=== PATIENT | female | born 1935 | race Caucasian/White ===

== ENCOUNTER → 2016-05-23 | Outpatient (CLI) | payer MEDICARE ==
[~2016-05-23] MED LIST: ASPI81 PO; DILT180C56 PO; DUONI NEB; HYDR-2768 PO; LORA0.5T PO; LOVA10TA PO; OMEG5CAP PO; OMEP20CA5 PO; ROBIDMS PO; TOPR50TA PO; Z.0.OXYGENDME NC
[2016-05-23 13:45] LABS: HEMATOCRIT 38.7 % (35.0-46.0); MEAN CELL VOLUME 89.1 FL (80.0-100.0); MEAN CORPUSCULAR HEMOGLOBIN 29.6 PG (27.0-34.0); MEAN CORPUSCULAR HGB CONC 33.3 % (32.0-36.0); PLATELET COUNT 190 TH/MM3 (150-450); RED BLOOD COUNT 4.35 MIL/MM3 (4.00-5.30); RED CELL DISTRIBUTION WIDTH 13.5 % (11.6-17.2); REVIEW FLAG FINAL; WHITE BLOOD COUNT 6.8 TH/MM3 (4.0-11.0)
[2016-05-23 14:06] LABS: BICARBONATE 25.8 MEQ/L (21.0-32.0); POTASSIUM 4.1 MEQ/L (3.5-5.1)
== END ==
LOC: PLAB 09:20
PROVIDERS: ATTEND Internal Medicine Interventional Cardiology
DX: I11.9 Hypertensive heart disease without heart failure (principal); I48.2 Chronic atrial fibrillation; J44.9 Chronic obstructive pulmonary disease, unspecified; E66.3 Overweight
CPT/HCPCS: 36415; 80048; 85027

== ENCOUNTER → 2016-11-03 | Outpatient (CLI) | payer MEDICARE ==
[2016-11-03 13:09] LABS: AUTOMATED NEUTROPHIL # 3.6 TH/MM3 (1.8-7.7); BASOPHIL % 0.5 % (0.0-2.0); EOSINOPHIL # 0.1 TH/MM3 (0-0.4); EOSINOPHIL % 2.2 % (0.0-4.0); HEMATOCRIT 40.4 % (35.0-46.0); HEMO FLAGS DIFF FINAL; LYMPH % 29.6 % (9.0-44.0); LYMPHOCYTE # 1.8 TH/MM3 (1.0-4.8); MEAN CORPUSCULAR HEMOGLOBIN 29.8 PG (27.0-34.0); MEAN CORPUSCULAR HGB CONC 33.4 % (32.0-36.0); MONO % 9.7 % (0.0-8.0); PLATELET COUNT 191 TH/MM3 (150-450); RED BLOOD COUNT 4.54 MIL/MM3 (4.00-5.30); RED CELL DISTRIBUTION WIDTH 13.2 % (11.6-17.2); WHITE BLOOD COUNT 6.2 TH/MM3 (4.0-11.0)
[2016-11-03 14:11] LABS: ALT (GPT) 47 U/L (10-53); ANION GAP 7 MEQ/L (5-15); AST (GOT) 38 U/L (15-37); BICARBONATE 29.7 MEQ/L (21.0-32.0); BLOOD UREA NITROGEN 14 MG/DL (7-18); CHLORIDE 102 MEQ/L (98-107); GLOMERULAR FILTRATION RATE 56 ML/MIN (>89); GLUCOSE,FASTING 98 MG/DL (74-99); POTASSIUM 4.8 MEQ/L (3.5-5.1); SODIUM (NA) 139 MEQ/L (136-145)
[2016-11-03 14:13] LABS: ALKALINE PHOSPHATASE 76 U/L (45-117); HDL CHOLESTEROL 57.6 MG/DL (40.0-60.0); LDL CHOLESTEROL 82 MG/DL (0-99); TOTAL BILIRUBIN ADULT 0.6 MG/DL (0.2-1.0)
== END ==
LOC: PLAB 11:20
PROVIDERS: ATTEND Internal Medicine Interventional Cardiology
DX: I11.9 Hypertensive heart disease without heart failure (principal); I48.2 Chronic atrial fibrillation; J44.9 Chronic obstructive pulmonary disease, unspecified; E66.3 Overweight; E78.2 Mixed hyperlipidemia
CPT/HCPCS: 36415; 80053; 80061; 85025

== ENCOUNTER 2016-12-22 10:15 | Emergency (ER) | payer MEDICARE ==
[~2016-12-22] VITALS: Ht 162.6 cm; Wt 79.0 kg
[2016-12-22 10:30] VITALS: BP 140/88; PULSE 135; RESP 17; TEMP 98.5; O2SAT 96
[2016-12-22] MEDS ORDERED: APIX5TAB PO (10:49)
[2016-12-22] MEDS ORDERED: PRIL20TA2 (10:49)
[2016-12-22] MEDS ORDERED: AUGM875T3 PO (12:22)
--- NOTE | 2016-12-22 12:22 | PD ---
HPI Chief Complaint: Bite or Sting Time Seen by Provider: 11:11 Travel History International Travel<30 days: No Contact w/Intl Traveler<30days: No Traveled to known affect area: No History of Present Illness HPI 81-year-old female here for evaluation of right hand laceration and dog bite. Injury occurred prior to arrival. Patient's dog bit her right hand when she attempted to take chocolate candy away from the dog's mouth. She has a laceration to the right fourth digit dorsal aspect and 2 puncture wounds to the dorsal aspect of the hand. She has full range of motion and normal sensation. The bleeding is well-controlled. Symptom severity is moderate. No alleviating factors. PFSH Past Medical History Hx Anticoagulant Therapy: Yes (ELIQUIS) Arthritis: No Asthma: No Heart Rhythm Problems: No Cancer: Yes (PRE CANCEROUS LESION, RIGHT HEMICOLECTOMY ) Cardiovascular Problems: Yes (HIGH CHOLESTEROL, AFIB) High Cholesterol: Yes Chemotherapy: No Chest Pain: No Congestive Heart Failure: No COPD: No Cerebrovascular Accident: No Diabetes: No Diminished Hearing: No Endocrine: No GERD: Yes ([place] Syndrome) Genitourinary: No Hepatitis: No Hiatal Hernia: Yes Hypertension: Yes (hypertension) Immune Disorder: No Kidney Stones: No Musculoskeletal: Yes (ARTHRITIS) Neurologic: No Psychiatric: No Reproductive: No Respiratory: Yes Immunizations Current: No Migraines: No Renal Failure: No Seizures: No Sleep Apnea: No Thyroid Disease: No Ulcer: No Menopausal: Yes Past Surgical History AICD: No Appendectomy: Yes Arteriovenous Shunt: No Cardiac Surgery: No Cholecystectomy: Yes Ear Surgery: No Endocrine Surgery: No Eye Surgery: Yes (pablo cataracts removed) Genitourinary Surgery: No Gynecologic Surgery: Yes (HYSTERECTOMY) Hysterectomy: Yes Insulin Pump: No Joint Replacement: No Oral Surgery: No Pacemaker: No Thoracic Surgery: No Tonsillectomy: Yes Other Surgery: Yes (RIGHT HEMICOLECTOMY) Social History Alcohol Use: No Tobacco Use: No Substance Use: No Allergies-Medications (Allergen,Severity, Reaction): Coded Allergies: celecoxib (Unverified Allergy, Severe, 12/22/16) fluoxetine (Unverified Allergy, Severe, 12/22/16) Reported Meds & Prescriptions Reported Meds & Active Scripts Active Augmentin (Amoxicillin-Clavulanate) 875-125 Mg Tab 1 Tab PO BID Reported Prilosec (Omeprazole Magnesium) 20 Mg Tab Eliquis (Apixaban) 5 Mg Tab 5 Mg PO BID Review of Systems Except as stated in HPI: all other systems reviewed are Neg Physical Exam Narrative GENERAL: Well-nourished, well-developed patient. SKIN: Focused skin assessment warm/dry. HEAD: Normocephalic. EYES: No scleral icterus. No injection or drainage. NECK: Supple, trachea midline. No JVD or lymphadenopathy. CARDIOVASCULAR: Regular rate and rhythm without murmurs, gallops, or rubs. RESPIRATORY: Breath sounds equal bilaterally. No accessory muscle use. GASTROINTESTINAL: Abdomen soft, non-tender, nondistended. MUSCULOSKELETAL: No cyanosis, or edema. Right hand: 3 cm gaping flap laceration dorsal aspect of the fourth digit over the IP joint. No tendon injury. Patient is able to fully flex and extend against resistance. Normal sensation. Brisk cap refill. 2 puncture wounds to the dorsal aspect of the hand; Data Data Last Documented VS Vital Signs Date Time Temp Pulse Resp B/P (MAP) Pulse Ox O2 Delivery O2 Flow Rate FiO2 12/22/16 10:30 98.5 135 17 140/88 (105) 96 MDM Medical Decision Making Medical Screen Exam Complete: Yes Emergency Medical Condition: Yes Differential Diagnosis Hand laceration, dog bite, puncture wound Narrative Course 81-year-old female here for evaluation of dog bite to the right hand. Patient has a gaping 3 cm laceration over the fourth digit dorsal aspect of the IP joint. No tendon injury visualized. Patient has full range of motion and normal sensation of the digit. Due to the gaping nature of the wound it was loosely tacked with sutures after being extensively irrigated. The extremity is neurovascularly intact. Patient we put on antibiotics. Finger splinted. Follow-up in 2 days for recheck. Strict return precautions discussed. Procedures Procedure Narrative LACERATION LOCATION: Right hand fourth digit LENGTH: 3 cm flap laceration NUMBER OF STITCHES/SIMBA: 5 REPAIR: The area of the laceration was prepped with Betadine and sterilely draped. Digital block with 1% lidocaine. The wound was copiously irrigated and explored without evidence of foreign body, tendon injury or neurovascular injury. The wound was closed using 4-0 proline. This was a single layer repair. A sterile dressing was applied. The patient was advised to keep the dressing clean and dry. Patient tolerated the procedure well. Diagnosis Primary Impression: Hand laceration Qualified Codes: S61.411A - Laceration without foreign body of right hand, initial encounter Referrals: Dallin Vázquez MD Additional Instructions: Do not submerge the wound in water. cleanse the area daily with soap and water and apply clean dressing. Follow-up with her doctor in 2 days for recheck Return to emergency department if he developed new or worsening symptoms such as increasing pain, increasing redness, pussy drainage Take the antibiotics as prescribed. Take [id number] Motrin or Tylenol as needed for pain Sutures need to be removed in 7-10 days Scripts Amoxicillin-Clavulanate (Augmentin) 875-125 Mg Tab 1 TAB PO BID for Infection, #20 TAB 0 Refills Prov: Celeste Herrera 12/22/16 Disposition: 01 DISCHARGE HOME Condition: Stable Celeste Herrera Dec 22, 2016 12:22
== END 2016-12-22 12:32 | disposition home or self-care (01) ==
LOC: PHED 10:15 → PHEFT 12:32
DX: S61.411A Laceration without foreign body of right hand, initial encounter (principal); S61.451A Open bite of right hand, initial encounter; W54.0XXA Bitten by dog, initial encounter
CPT/HCPCS: 12002

== ENCOUNTER 2017-02-08 21:32 | Inpatient (IN) | payer MEDICARE ==
[2017-02-08] VITALS (8 sets, daily range): BP systolic 131–169; BP diastolic 77–95; PULSE 98–158; RESP 20–22; TEMP 98.8–99.5; O2SAT 94–98
[~2017-02-08 21:32] MED LIST changes: +APIX5TAB PO; -ASPI81 PO; +AUGM875T3 PO; -DILT180C56 PO; -DUONI NEB; -HYDR-2768 PO; -LORA0.5T PO; -LOVA10TA PO; -OMEG5CAP PO; -OMEP20CA5 PO; +PRIL20TA2; -ROBIDMS PO; -TOPR50TA PO; -Z.0.OXYGENDME NC
[2017-02-08] MEDS ORDERED: DILTIAZEM HCL 25 MG/5 ML VIAL IV ONE (22:00)
[2017-02-08] MEDS ORDERED: ONDANSETRON HCL 4 MG/2 ML VIAL IV PUSH ONE (22:00)
[2017-02-08] MEDS ORDERED: SODIUM CHLORID 0.9% 500 ML INJ 500 ML IV ONE (22:00)
[2017-02-08 22:08] LABS: AUTOMATED NEUTROPHIL # 2.2 TH/MM3 (1.8-7.7); BASOPHIL # 0.1 TH/MM3 (0-0.2); BASOPHIL % 1.5 % (0.0-2.0); EOSINOPHIL % 0.2 % (0.0-4.0); HEMO FLAGS DIFF FINAL; LYMPH % 28.9 % (9.0-44.0); LYMPHOCYTE # 1.1 TH/MM3 (1.0-4.8); MEAN CELL VOLUME 87.1 FL (80.0-100.0); MEAN CORPUSCULAR HEMOGLOBIN 28.9 PG (27.0-34.0); MEAN CORPUSCULAR HGB CONC 33.1 % (32.0-36.0); MONO % 11.4 % (0.0-8.0); PLATELET COUNT 136 TH/MM3 (150-450); RED BLOOD COUNT 4.82 MIL/MM3 (4.00-5.30); RED CELL DISTRIBUTION WIDTH 12.3 % (11.6-17.2); WHITE BLOOD COUNT 3.8 TH/MM3 (4.0-11.0)
[2017-02-08] MEDS ORDERED: METO1TAB9 PO (22:16)
[2017-02-08] MEDS ORDERED: CART120C PO (22:16)
[2017-02-08] MEDS ORDERED: PRIL20TA2 (22:16)
[2017-02-08 22:19] LABS: CHLORIDE 98 MEQ/L (98-107); POTASSIUM 3.4 MEQ/L (3.5-5.1); SODIUM (NA) 134 MEQ/L (136-145)
[2017-02-08 22:23] LABS: ANION GAP 15 MEQ/L (5-15); BICARBONATE 21.2 MEQ/L (21.0-32.0); BLOOD UREA NITROGEN 9 MG/DL (7-18)
[2017-02-08 22:26] LABS: ALT (GPT) 44 U/L (10-53); AST (GOT) 44 U/L (15-37); GLOMERULAR FILTRATION RATE 53 ML/MIN (>89)
[2017-02-08 22:27] LABS: TOTAL BILIRUBIN ADULT 0.6 MG/DL (0.2-1.0)
[2017-02-08 22:28] LABS: ALKALINE PHOSPHATASE 99 U/L (45-117); CREATINE KINASE 111 U/L (26-192)
[2017-02-08 22:41] LABS: CKMB 1.2 NG/ML (0.5-3.6)
[2017-02-08] MEDS ORDERED: TRAZ50TA12 PO (23:00)
[2017-02-08] MEDS ORDERED: LORazepam 2 MG/ML VIAL IV ONE (23:00)
[2017-02-08] MEDS ORDERED: LORA-392 PO (23:00)
[2017-02-08] MEDS ORDERED: HYDR25TA5 PO (23:09)
--- NOTE | 2017-02-08 23:12 | EKG ---
Date Performed: 02/08/2017 Time Performed: 21:54:08 PTAGE: 81 years EKG: PROBABLE AFIB WITH RVR NONSPECIFIC ST & T-WAVE ABNORMALITY ABNORMAL RHYTHM ECG INTERPRETATI ON BASED ON A DEFAULT AGE OF 40 YEARS PREVIOUS TRACING : 07/30/2013 23.57 Compared to the previous tracing, previously felt to be sinus tachycardia DOCTOR: Sae Borja Interpretating Date/Time 02/08/2017 23:11:56
[2017-02-08] MEDS: DILTIAZEM INJ 125 MG in SODIUM CHLORIDE 0.9% INJ 100 ML IV PRN (23:31)
--- NOTE | 2017-02-08 23:33 | PD ---
HPI Chief Complaint: Cold / Flu Symptoms Time Seen by Provider: 21:54 Travel History International Travel<30 days: No Contact w/Intl Traveler<30days: No Traveled to known affect area: No History of Present Illness HPI Patient is a 81-year-old female who is coming in complaining of feeling lightheaded and dizzy headache E congestion feverish and at triage she is known that she is in rapid A. fib. She is history of A. fib she is on Ellick was as well as metoprolol and other meds. She is in rapid A. fib she has no chest pain she has congestion she feels feverish feels slightly dizzy and light is hurting her eyes. PFSH Past Medical History Hx Anticoagulant Therapy: Yes (ELIQUIS) Arthritis: No Asthma: No Heart Rhythm Problems: No Cancer: Yes (PRE CANCEROUS LESION, RIGHT HEMICOLECTOMY ) Cardiovascular Problems: Yes High Cholesterol: Yes Chemotherapy: No Chest Pain: No Congestive Heart Failure: No COPD: No Cerebrovascular Accident: No Diabetes: No Diminished Hearing: No Endocrine: No GERD: Yes Genitourinary: No Hepatitis: No Hiatal Hernia: Yes Hypertension: Yes Immune Disorder: No Kidney Stones: No Musculoskeletal: Yes Neurologic: No Psychiatric: No Reproductive: No Respiratory: Yes Immunizations Current: No Migraines: No Renal Failure: No Seizures: No Sleep Apnea: No Thyroid Disease: No Ulcer: No Menopausal: Yes Past Surgical History AICD: No Appendectomy: Yes Arteriovenous Shunt: No Cardiac Surgery: No Cholecystectomy: Yes Ear Surgery: No Endocrine Surgery: No Eye Surgery: Yes (BILATERAL CATARACTS) Genitourinary Surgery: No Gynecologic Surgery: Yes Hysterectomy: Yes Insulin Pump: No Joint Replacement: No Oral Surgery: No Pacemaker: No Thoracic Surgery: No Tonsillectomy: Yes Other Surgery: Yes (RIGHT HEMICOLECTOMY) Social History Alcohol Use: No Tobacco Use: No (QUIT 1980) Substance Use: No Allergies-Medications (Allergen,Severity, Reaction): Coded Allergies: celecoxib (Unverified Allergy, Severe, 02/08/17) fluoxetine (Unverified Allergy, Severe, 02/08/17) Reported Meds & Prescriptions Reported Meds & Active Scripts Active Reported Trazodone (Trazodone HCl) 50 Mg Tab 50 Mg PO HS Ativan (Lorazepam) 0.5 Mg Tab 0.5 Mg PO Q6H PRN Prilosec (Omeprazole Magnesium) 20 Mg Tab Eliquis (Apixaban) 5 Mg Tab 5 Mg PO BID Physical Exam Narrative GENERAL: Congested nasal red nose hoarse voice SKIN: Warm and dry. HEAD: Atraumatic. Normocephalic. EYES: Pupils equal and round. No scleral icterus. No injection or drainage. ENT: No nasal bleeding or discharge. Mucous membranes pink and moist. Tonsils swollen bilaterally with mild exudate NECK: Trachea midline. No JVD. CARDIOVASCULAR: Regular rate and rhythm. RESPIRATORY: No accessory muscle use. Clear to auscultation. Breath sounds equal bilaterally. GASTROINTESTINAL: Abdomen soft, non-tender, nondistended. Hepatic and splenic margins not palpable. MUSCULOSKELETAL: Extremities without clubbing, cyanosis, or edema. No obvious deformities. NEUROLOGICAL: Awake and alert. No obvious cranial nerve deficits. Motor grossly within normal limits. Five out of 5 muscle strength in the arms and legs. Normal speech. PSYCHIATRIC: Appropriate mood and affect; insight and judgment normal. Data Data Last Documented VS Vital Signs Date Time Temp Pulse Resp B/P (MAP) Pulse Ox O2 Delivery O2 Flow Rate FiO2 02/08/17 23:40 99.5 129 20 142/79 (100) 95 Nasal Cannula 3.00 Orders Orders Diltiazem Inj (Cardizem Inj) (02/08/17 22:00) Ondansetron Inj (Zofran Inj) (02/08/17 22:00) Sodium Chlorid 0.9% 500 Ml Inj (Ns 500 M (02/08/17 22:00) Complete Blood Count With Diff (02/08/17 21:57) Comprehensive Metabolic Panel (02/08/17 21:57) Ckmb (Isoenzyme) Profile (02/08/17 21:57) Troponin I (02/08/17 21:57) Lipase (02/08/17 21:57) CKMB (02/08/17 22:00) CKMB% (02/08/17 22:00) Electrocardiogram (02/08/17 21:54) Review Analyst / Telemetry DAYRON.Q8H (02/08/17 22:32) Cardiac Rhythm DAYRON.Q8H (02/08/17 22:32) Notify Dr: Other (02/08/17 22:32) Diltiazem Inj (Cardizem Inj) (02/08/17 22:45) Influenzae A/B Antigen (02/08/17 22:56) Group A Rapid Strep Screen (02/08/17 22:56) Lorazepam Inj (Ativan Inj) (02/08/17 23:00) Admit To Inpatient (02/08/17 ) Vital Signs (Adult) Q4H (02/08/17 23:39) Activity Oob With Assistance (02/08/17 23:39) Review Analyst / Telemetry .CONTINUOUS (02/08/17 23:39) Intake + Output DAYRON.QSHIFT (02/08/17 23:39) Diet Heart Healthy (02/09/17 Breakfast) Sodium Chlor 0.9% 1000 Ml Inj (Ns 1000 M (02/08/17 23:39) Sodium Chloride 0.9% Flush (Ns Flush) (02/08/17 23:45) Sodium Chloride 0.9% Flush (Ns Flush) (02/09/17 09:00) Ondansetron Inj (Zofran Inj) (02/08/17 23:45) Comprehensive Metabolic Panel (02/09/17 06:00) Complete Blood Count With Diff (02/09/17 06:00) Pharmacologic Contraindication (02/08/17 23:39) Acetaminophen (Tylenol) (02/08/17 23:45) Acetamin-Hydrocod 325-5 Mg ([place] 5-325 (02/08/17 23:45) Acetamin-Hydrocod 325-10 Mg ([place] 10-32 (02/08/17 23:45) Docusate Sodium-Senna (Alysia-Colace) (02/09/17 09:00) Magnesium Hydroxide Liq (Milk Of Magnesi (02/08/17 23:45) Sennosides (Senokot) (02/08/17 23:45) Bisacodyl Supp (Dulcolax Supp) (02/08/17 23:45) Lactulose Liq (Lactulose Liq) (02/08/17 23:45) Inpatient Certification (02/08/17 ) Apixaban (Eliquis) (02/09/17 09:00) Lorazepam (Ativan) (02/08/17 23:45) Metoprolol Succinate Er (Toprol Xl) (02/09/17 09:00) Trazodone (Desyrel) (02/09/17 21:00) Admit Order (Ed Use Only) (02/08/17 23:43) Labs Laboratory Tests Test 02/08/17 22:00 White Blood Count 3.8 TH/MM3 Red Blood Count 4.82 MIL/MM3 Hemoglobin 13.9 GM/DL Hematocrit 42.0 % Mean Corpuscular Volume 87.1 FL Mean Corpuscular Hemoglobin 28.9 PG Mean Corpuscular Hemoglobin Concent 33.1 % Red Cell Distribution Width 12.3 % Platelet Count 136 TH/MM3 Mean Platelet Volume 8.7 FL Neutrophils (%) (Auto) 58.0 % Lymphocytes (%) (Auto) 28.9 % Monocytes (%) (Auto) 11.4 % Eosinophils (%) (Auto) 0.2 % Basophils (%) (Auto) 1.5 % Neutrophils # (Auto) 2.2 TH/MM3 Lymphocytes # (Auto) 1.1 TH/MM3 Monocytes # (Auto) 0.4 TH/MM3 Eosinophils # (Auto) 0.0 TH/MM3 Basophils # (Auto) 0.1 TH/MM3 CBC Comment DIFF FINAL Differential Comment Blood Urea Nitrogen 9 MG/DL Creatinine 1.00 MG/DL Random Glucose 140 MG/DL Total Protein 8.0 GM/DL Albumin 4.1 GM/DL Calcium Level 9.1 MG/DL Alkaline Phosphatase 99 U/L Aspartate Amino Transf (AST/SGOT) 44 U/L Alanine Aminotransferase (ALT/SGPT) 44 U/L Total Bilirubin 0.6 MG/DL Sodium Level 134 MEQ/L Potassium Level 3.4 MEQ/L Chloride Level 98 MEQ/L Carbon Dioxide Level 21.2 MEQ/L Anion Gap 15 MEQ/L Estimat Glomerular Filtration Rate 53 ML/MIN Total Creatine Kinase 111 U/L Creatine Kinase MB 1.2 NG/ML Troponin I LESS THAN 0.02 NG/ML Lipase 98 U/L MDM Medical Decision Making Medical Screen Exam Complete: Yes Emergency Medical Condition: Yes Differential Diagnosis Viral illness versus bronchitis versus pneumonia versus influenza other Narrative Course Patient influenza is nasal aspirate is positive for influenza patient is given symptomatic treatment as well as Tamiflu 75 g by mouth's with a prescription for 5 days twice a day Robitussin-AC and Motrin and advised to avoid contact with kissing or shaking hands with others until the Tamiflu is finished Diagnosis Primary Impression: Influenza B Scripts Metoprolol Tartrate (Metoprolol Tartrate) 25 Mg Tab 25 MG PO BID for Heart, #60 TAB 3 Refills Hold if Blood pressure < 100 or Heart rate < 65 Prov: Candy Dobbins DO 02/10/17 Diltiazem CD 24 HR (Diltiazem CD 24 HR) 240 Mg Caper 240 MG PO DAILY for Heart, #30 CAP 3 Refills Hold if heart rate < 65 or Blood pressure < 100 Prov: Candy Dobbins DO 02/10/17 Oseltamivir (Tamiflu) 75 Mg Cap 75 MG PO DAILY for Infection, #3 CAP Prov: Candy Dobbins DO 02/10/17 Disposition: 01 DISCHARGE HOME Condition: Good Marco Randolph MD Feb 08, 2017 23:33
[2017-02-08] MEDS ORDERED: ACETAMINOPHEN/HYDROcodone 325 MG/5 MG TAB PO PRN (23:45)
[2017-02-08] MEDS ORDERED: ONDANSETRON HCL 4 MG/2 ML VIAL IVP PRN (23:45)
[2017-02-08] MEDS ORDERED: ACETAMINOPHEN/HYDROcodone 325 MG/10 MG TAB PO PRN (23:45)
[2017-02-08] MEDS ORDERED: BISACODYL 10 MG SUPP RECTAL PRN (23:45)
[2017-02-08] MEDS ORDERED: SODIUM CHLORIDE 0.9% FLUSH 10 ML FLUSH IV FLUSH PRN (23:45)
[2017-02-08] MEDS ORDERED: LACTULOSE SYRUP 20 GM/30 ML CUP PO PRN (23:45)
[2017-02-08] MEDS ORDERED: LORazepam 0.5 MG TAB PO PRN (23:45)
[2017-02-08] MEDS ORDERED: MAGNESIUM HYDROXIDE SUSP 30 ML CUP PO PRN (23:45)
[2017-02-08] MEDS ORDERED: SENNOSIDES 8.6 MG TAB PO PRN (23:45)
[2017-02-08] MEDS ORDERED: ACETAMINOPHEN 325 MG TAB PO PRN (23:45)
[2017-02-09] VITALS (61 sets, daily range): BP systolic 75–146; BP diastolic 48–92; PULSE 70–126; RESP 11–37; TEMP 97.9–99; O2SAT 92–99
[2017-02-09 05:15] LABS: HEMATOCRIT 39.3 % (35.0-46.0); MEAN CELL VOLUME 87.7 FL (80.0-100.0); MEAN CORPUSCULAR HEMOGLOBIN 29.6 PG (27.0-34.0); MEAN CORPUSCULAR HGB CONC 33.7 % (32.0-36.0); PLATELET COUNT 129 TH/MM3 (150-450); RED BLOOD COUNT 4.48 MIL/MM3 (4.00-5.30); RED CELL DISTRIBUTION WIDTH 12.2 % (11.6-17.2); WHITE BLOOD COUNT 3.6 TH/MM3 (4.0-11.0)
[2017-02-09 05:17] LABS: HEMO FLAGS AUTO DIFF
[2017-02-09 05:28] LABS: CHLORIDE 101 MEQ/L (98-107); POTASSIUM 3.5 MEQ/L (3.5-5.1); SODIUM (NA) 135 MEQ/L (136-145)
[2017-02-09 05:33] LABS: BANDS 5 % (0-6); NEUTROPHIL # MANUAL DIFF 2.2 TH/MM3 (1.8-7.7); PLATELET ESTIMATE SMEAR LOW (NORMAL); POLYS (SEG NEUTROPHILS) 56 % (16-70); WBC DIFF SAMPLE 100
[2017-02-09 05:34] LABS: ANION GAP 10 MEQ/L (5-15); BICARBONATE 24.5 MEQ/L (21.0-32.0); BLOOD UREA NITROGEN 8 MG/DL (7-18); PLATELET MORPHOLOGY NORMAL (NORMAL); SCAN/DIFF FINAL DIFF MANUAL
[2017-02-09 05:43] LABS: ALKALINE PHOSPHATASE 87 U/L (45-117); ALT (GPT) 38 U/L (10-53); AST (GOT) 40 U/L (15-37); GLOMERULAR FILTRATION RATE 77 ML/MIN (>89); TOTAL BILIRUBIN ADULT 0.5 MG/DL (0.2-1.0)
[2017-02-09] MEDS: SODIUM CHLORIDE 0.9% FLUSH 10 ML FLUSH IV FLUSH SCH ×2 (09:00→20:34)
[2017-02-09] MEDS ORDERED: METOPROLOL SUCCINATE 50 MG EXTENDED RELEASE TAB PO SCH (09:00)
[2017-02-09] MEDS: DOCUSATE SODIUM 50 MG/SENNA 8.6 MG TAB PO SCH ×2 (09:10→20:33)
[2017-02-09] MEDS: APIXABAN 5 MG TABLET PO SCH ×2 (09:10→20:33)
--- NOTE | 2017-02-09 09:19 | HHI.HP ---
HPI Service [facility] Primary Care Physician Dallin Vázquez MD Admission Diagnosis AFIB RVR Diagnoses: Chief Complaint: Lightheadedness, dizziness, nausea, feeling cold. Travel History International Travel<30 Days: No Contact w/Intl Traveler <30 Da: No Traveled to Known Affected Are: No Sepsis Criteria SIRS Criteria (2 or more): Heart rate over 90, RR > 20 or PaCO2 < 32 History of Present Illness Ms. Felton is a 81-year-old female with a history of atrial fibrillation, hypertension who presents to the emergency department on 02/08/2017 due to nausea, lightheadedness, dizziness, headache and feeling cold symptoms. Patient started feeling cold on 02/05/2017. For the last 2 days prior to this admission she could not keep any fluid down due to nausea. She reports some cough as well. She denies any chest pain, abdominal pain. No changes in bowel or bladder habits. In the ED she was found to have atrial fibrillation with RVR. Review of Systems Except as stated in HPI: all other systems reviewed are Neg Past Family Social History Past Medical History Atrial fibrillation, hypertension, hiatal hernia, GERD Past Surgical History Bilateral cataract surgery, right hemicolectomy, cholecystectomy, hysterectomy Reported Medications Hydrochlorothiazide 25 Mg Tab 25 Mg PO DAILY Trazodone (Trazodone HCl) 50 Mg Tab 50 Mg PO HS Ativan (Lorazepam) 0.5 Mg Tab 0.5 Mg PO Q6H PRN Cartia Xt (Diltiazem ER 24 HR) 120 Mg Caper 120 Mg PO DAILY Metoprolol Succinate ER 24 HR (Metoprolol Succinate) 50 Mg Tab 50 Mg PO BID Prilosec (Omeprazole Magnesium) 20 Mg Tab Eliquis (Apixaban) 5 Mg Tab 5 Mg PO BID Allergies: Coded Allergies: celecoxib (Unverified Allergy, Severe, 02/08/17) fluoxetine (Unverified Allergy, Severe, 02/08/17) Family History Mother had lung cancer. No family history of Alzheimer's or Parkinson's. Social History Patient denies using tobacco, alcohol, illicit drugs. Physical Exam Vital Signs Vital Signs Date Time Temp Pulse Resp B/P (MAP) Pulse Ox O2 Delivery O2 Flow Rate FiO2 02/09/17 06:00 83 02/09/17 04:05 97.9 98 15 113/71 (85) 95 02/09/17 04:00 114 02/09/17 04:00 103 02/09/17 03:31 86 15 94/61 (72) 98 02/09/17 02:30 98 24 112/78 (89) 96 02/09/17 02:10 96 Nasal Cannula 4.00 02/09/17 02:00 94 02/09/17 01:30 98 26 110/76 (87) 92 02/09/17 01:00 123 02/09/17 00:35 99.0 116 16 115/77 (90) 94 02/09/17 00:25 99.0 118 20 138/76 (96) 98 Nasal Cannula 3.00 02/08/17 23:55 122 20 139/81 (100) 97 Nasal Cannula 2.00 02/08/17 23:40 99.5 129 20 142/79 (100) 95 Nasal Cannula 3.00 02/08/17 23:31 118 149/88 02/08/17 23:15 119 20 131/79 (96) 98 Nasal Cannula 2.00 02/08/17 23:00 98 20 137/77 (97) 98 Nasal Cannula 2.00 02/08/17 22:45 129 20 144/88 (106) 98 Nasal Cannula 2.00 02/08/17 22:17 129 20 96 Nasal Cannula 2.00 02/08/17 22:17 105 20 149/79 (102) 96 Nasal Cannula 2.00 02/08/17 22:00 99.1 152 20 167/90 (115) 94 Nasal Cannula 2.00 02/08/17 21:41 98.8 158 22 169/95 (119) 98 Physical Exam GENERAL: This is a well-nourished, well-developed patient, in no apparent distress. SKIN: No rashes, ecchymoses or lesions. Warm and dry. HEAD: Atraumatic. Normocephalic. No temporal or scalp tenderness. EYES: Pupils equal round and reactive. No injection or drainage. ENT: Nose without bleeding, purulent drainage or septal hematoma. Airway patent. NECK: Trachea midline. No lymphadenopathy. Supple, nontender, no meningeal signs. CARDIOVASCULAR: Tachycardic, irregularly irregular without murmurs, gallops, or rubs. No JVD. RESPIRATORY: Clear to auscultation. Breath sounds equal bilaterally. No wheezes , rales, or rhonchi. GASTROINTESTINAL: Abdomen soft, non-tender, nondistended. No guarding. MUSCULOSKELETAL: Extremities without clubbing, cyanosis, or edema. NEUROLOGICAL: Awake and alert. Cranial nerves II through XII intact. No focal neurological deficits. Normal speech. Laboratory Laboratory Tests Test 02/08/17 22:00 02/09/17 04:25 White Blood Count 3.8 3.6 Red Blood Count 4.82 4.48 Hemoglobin 13.9 13.3 Hematocrit 42.0 39.3 Mean Corpuscular Volume 87.1 87.7 Mean Corpuscular Hemoglobin 28.9 29.6 Mean Corpuscular Hemoglobin Concent 33.1 33.7 Red Cell Distribution Width 12.3 12.2 Platelet Count 136 129 Mean Platelet Volume 8.7 9.2 Neutrophils (%) (Auto) 58.0 Lymphocytes (%) (Auto) 28.9 Monocytes (%) (Auto) 11.4 Eosinophils (%) (Auto) 0.2 Basophils (%) (Auto) 1.5 Neutrophils # (Auto) 2.2 Lymphocytes # (Auto) 1.1 Monocytes # (Auto) 0.4 Eosinophils # (Auto) 0.0 Basophils # (Auto) 0.1 CBC Comment DIFF FINAL AUTO DIFF Differential Comment FINAL DIFF MANUAL Blood Urea Nitrogen 9 8 Creatinine 1.00 0.73 Random Glucose 140 104 Total Protein 8.0 7.3 Albumin 4.1 3.7 Calcium Level 9.1 8.2 Alkaline Phosphatase 99 87 Aspartate Amino Transf (AST/SGOT) 44 40 Alanine Aminotransferase (ALT/SGPT) 44 38 Total Bilirubin 0.6 0.5 Sodium Level 134 135 Potassium Level 3.4 3.5 Chloride Level 98 101 Carbon Dioxide Level 21.2 24.5 Anion Gap 15 10 Estimat Glomerular Filtration Rate 53 77 Total Creatine Kinase 111 Creatine Kinase MB 1.2 Troponin I LESS THAN 0.02 Lipase 98 Differential Total Cells Counted 100 Neutrophils % (Manual) 56 Band Neutrophils % 5 Lymphocytes % 28 Monocytes % 11 Neutrophils # (Manual) 2.2 Platelet Estimate LOW Platelet Morphology Comment NORMAL Red Cell Morphology Comment NORMAL Date/Time Source Procedure Growth Status 02/08/17 23:22 Throat Group A Streptococcus Screen Pending Received Result Diagram: 02/09/1742402/09/17424 Caprini VTE Risk Assessment Caprini VTE Risk Assessment: Mod/High Risk (score >= 2) Caprini Risk Assessment Model Point Value = 1 Point Value = 2 Point Value = 3 Point Value = 5 Age 41-60 Minor surgery BMI > 25 kg/m2 Swollen legs Varicose veins or History of unexplained or recurrent spontaneous Oral contraceptives or hormone replacement Sepsis (< 1 month) Serious lung disease, including pneumonia (< 1 month) Abnormal pulmonary function Acute myocardial infarction Congestive heart failure (< 1 month) History of inflammatory bowel disease Medical patient at bed rest Age 61-74 Arthroscopic surgery Major open surgery (> 45 min) Laparoscopic surgery (> 45 min) Malignancy Confined to bed (> 72 hours) Immobilizing plaster cast Central venous access Age >= 75 History of VTE Family history of VTE Factor V Leiden Prothrombin [id number] Lupus anticoagulant Anticardiolipin antibodies Elevated serum homocysteine Heparin-induced thrombocytopenia Other congenital or acquired thrombophilia Stroke (< 1 month) Elective arthroplasty Hip, pelvis, or leg fracture Acute spinal cord injury (< 1 month) Prophylaxis Regimen Total Risk Factor Score Risk Level Prophylaxis Regimen 0-1 Low Early ambulation 2 Moderate Order ONE of the following: *Sequential Compression Device (SCD) *Heparin 5000 units SQ BID 3-4 Higher Order ONE of the following medications: *Heparin 5000 units SQ TID *Enoxaparin/Lovenox 40 mg SQ daily (WT < 150 kg, CrCl > 30 mL/min) *Enoxaparin/Lovenox 30 mg SQ daily (WT < 150 kg, CrCl > 10-29 mL/min) *Enoxaparin/Lovenox 30 mg SQ BID (WT < 150 kg, CrCl > 30 mL/min) AND/OR *Sequential Compression Device (SCD) 5 or more Highest Order ONE of the following medications: *Heparin 5000 units SQ TID (Preferred with Epidurals) *Enoxaparin/Lovenox 40 mg SQ daily (WT < 150 kg, CrCl > 30 mL/min) *Enoxaparin/Lovenox 30 mg SQ daily (WT < 150 kg, CrCl > 10-29 mL/min) *Enoxaparin/Lovenox 30 mg SQ BID (WT < 150 kg, CrCl > 30 mL/min) AND *Sequential Compression Device (SCD) Assessment and Plan Problem List: (1) Influenza B ICD Code: J10.1 - Influenza due to other identified influenza virus with other respiratory manifestations (2) Atrial fibrillation ICD Code: I48.91 - Atrial fibrillation Status: Acute (3) Hypertension ICD Code: I10 - Hypertension Status: Acute Assessment and Plan Ms. Felton is a pleasant 81-year-old female with a history of atrial fibrillation, hypertension who presents to the emergency department on 2016 due to flulike symptoms including dizziness lightheadedness, headache, fever and nausea. In the ED she was found to have atrial fibrillation with RVR. Influenza B screen positive. - Influenza B positive - We'll start patient on Tamiflu for 5 days. - Continue supplemental oxygen to keep O2 saturation above 90% - Atrial fibrillation with RVR - Discontinue metoprolol succinate and start metoprolol tartrate 50 mg every 8 hours. - Start Cardizem 60 mg every 6 hours - Continue Cardizem drip and try to wean it off. - Patient's [id number] score would be 4 (Female, age > 74, HTN) - Continue Apixaban 5mg BID. - Hypertension - Currently normotensive. Full code. Apixaban. Physician Certification 2 Midnight Certification Type: Admission for Inpatient Services Order for Inpatient Services The services are ordered in accordance with Medicare regulations or non- Medicare payer requirements, as applicable. In the case of services not specified as inpatient-only, they are appropriately provided as inpatient services in accordance with the 2-midnight benchmark. Estimated LOS (days): 2 days is the estimated time the patient will need to remain in the hospital, assuming treatment plan goals are met and no additional complications. Post-Hospital Plan: Not yet determined Candy Dobbins DO Feb 09, 2017 09:19
[2017-02-09] MEDS: SODIUM CHLOR 0.9% 1000 ML INJ 1,000 ML IV SCH ×2 (09:38→21:39)
[2017-02-09] MEDS: DILTIAZEM INJ 125 MG in SODIUM CHLORIDE 0.9% INJ 100 ML IV PRN (09:39)
--- NOTE | 2017-02-09 09:45 | RADRPT ---
EXAM DATE/TIME: 02/09/2017 09:28 [facility] COMPARISON: CHEST EXPIRATION ONLY, August 20, 2013, 12:11. INDICATIONS : Heart palpatations. MEDICAL HISTORY : Hypercholesterolemia. Carcinoma, colon. Gastroesophageal reflux disease. Hypertension. Hiatial he rnia. Former smoker. SURGICAL HISTORY : Tonsillectomy. Cholecystectomy. Appendectomy. Hysterectomy. Right hemicolectomy. ENCOUNTER: Initial ACUITY: 2 days PAIN SCORE: 0/10 LOCATION: chest FINDINGS: A single view of the chest demonstrates the lungs to be symmetrically aerated without evidence of mas s, infiltrate or effusion. The cardiomediastinal contours are stable. Osseous structures are intact . CONCLUSION: 1. No acute abnormality or significant interval change. Moi Barnard MD on February 09, 2017 at 9:41 Board Certified Radiologist. This report was verified electronically.
[2017-02-09] MEDS: OSELTAMIVIR PHOSPHATE 75 MG CAP PO SCH (11:47)
[2017-02-09] MEDS: DILTIAZEM HCL 60 MG TAB PO SCH ×2 (11:48→17:35)
[2017-02-09] MEDS: METOPROLOL TARTRATE 50 MG TAB PO SCH ×2 (14:28→21:39)
[2017-02-09] MEDS ORDERED: traZODone HCL 50 MG TAB PO SCH (21:00)
[2017-02-09] MEDS ORDERED: SODIUM CHLOR 0.9% 1000 ML INJ 1,000 ML IV ONE (22:30)
[2017-02-10] VITALS (12 sets, daily range): BP systolic 86–140; BP diastolic 51–78; PULSE 74–107; RESP 11–18; TEMP 97.9–99; O2SAT 92–97
[2017-02-10 02:52] LABS: C. DIFF EPI 027 PRESUMPTIVE NEGATIVE (NEGATIVE)
[2017-02-10] MEDS: DILTIAZEM HCL 60 MG TAB PO SCH ×3 (04:23→10:38)
[2017-02-10] MEDS: METOPROLOL TARTRATE 50 MG TAB PO SCH (06:00)
[2017-02-10] MEDS: SODIUM CHLORIDE 0.9% FLUSH 10 ML FLUSH IV FLUSH SCH (10:38)
[2017-02-10] MEDS: SODIUM CHLOR 0.9% 1000 ML INJ 1,000 ML IV SCH (10:38)
[2017-02-10] MEDS: OSELTAMIVIR PHOSPHATE 75 MG CAP PO SCH (10:38)
[2017-02-10] MEDS: APIXABAN 5 MG TABLET PO SCH (10:38)
[2017-02-10] MEDS: DOCUSATE SODIUM 50 MG/SENNA 8.6 MG TAB PO SCH (10:38)
[2017-02-10] MEDS ORDERED: METO25TA3 PO (11:23)
[2017-02-10] MEDS ORDERED: DILT240C44 PO (11:23)
[2017-02-10] MEDS ORDERED: OSEL75 PO (11:23)
--- NOTE | 2017-02-10 11:27 | HHI.DS ---
Discharge Summary Admission Date Feb 08, 2017 at 11:45 pm Discharge Date: Feb 10, 2017 Admitting Diagnosis AFIB RVR (1) Influenza B ICD Code: J10.1 - Influenza due to other identified influenza virus with other respiratory manifestations (2) Atrial fibrillation ICD Code: I48.91 - Atrial fibrillation Status: Acute (3) Hypertension ICD Code: I10 - Hypertension Status: Acute Procedures None. Brief History - From Admission Ms. Felton is a 81-year-old female with a history of atrial fibrillation, hypertension who presents to the emergency department on 02/08/2017 due to nausea, lightheadedness, dizziness, headache and feeling cold symptoms. Patient started feeling cold on 02/05/2017. For the last 2 days prior to this admission she could not keep any fluid down due to nausea. She reports some cough as well. She denies any chest pain, abdominal pain. No changes in bowel or bladder habits. In the ED she was found to have atrial fibrillation with RVR. CBC/BMP: 02/09/17 0425 02/09/17 0425 Significant Findings Laboratory Tests Test 02/08/17 22:00 02/09/17 04:25 02/09/17 22:35 White Blood Count 3.8 TH/MM3 (4.0-11.0) 3.6 TH/MM3 (4.0-11.0) Platelet Count 136 TH/MM3 (150-450) 129 TH/MM3 (150-450) Monocytes (%) (Auto) 11.4 % (0.0-8.0) Random Glucose 140 MG/DL (74-106) Aspartate Amino Transf (AST/SGOT) 44 U/L (15-37) 40 U/L (15-37) Sodium Level 134 MEQ/L (136-145) 135 MEQ/L (136-145) Potassium Level 3.4 MEQ/L (3.5-5.1) Estimat Glomerular Filtration Rate 53 ML/MIN (>89) 77 ML/MIN (>89) Troponin I LESS THAN 0.02 NG/ML Monocytes % 11 % (0-8) Platelet Estimate LOW (NORMAL) Calcium Level 8.2 MG/DL (8.5-10.1) Imaging Last Impressions Chest X-Ray 02/09/17 0000 Signed Impressions: Service Date/Time: Thursday, February 09, 2017 09:28 - CONCLUSION: 1. No acute abnormality or significant interval change. Moi Barnard MD PE at Discharge GENERAL: Alert, oriented 3, NAD. SKIN: Warm and dry. HEAD: Normocephalic. EYES: No scleral icterus. No injection or drainage. NECK: Supple, trachea midline. No JVD or lymphadenopathy. CARDIOVASCULAR: Regular rate and rhythm without murmurs, gallops, or rubs. RESPIRATORY: Breath sounds equal bilaterally. No accessory muscle use. GASTROINTESTINAL: Abdomen soft, non-tender, nondistended. MUSCULOSKELETAL: No cyanosis, or edema. BACK: Nontender without obvious deformity. No CVA tenderness. Pt update on day of discharge Patient is doing well. No acute concerns. Ambulating well. Tolerating diet well. Hospital Course Ms. Felton is a pleasant 81-year-old female with a history of atrial fibrillation, hypertension who presents to the emergency department on 2016 due to flulike symptoms including dizziness lightheadedness, headache, fever and nausea. In the ED she was found to have atrial fibrillation with RVR. Influenza B screen positive. - Influenza B positive - We'll continue patient on Tamiflu for total 5 days. - Continue supplemental oxygen to keep O2 saturation above 90%. Currently on room air. - Atrial fibrillation with RVR - Cardizem drip weaned off. We started patient on short acting cardizem and switched to long acting cardizem on discharge. - Reduced metoprolol succinate to Metoprolol tartrate 25mg BID with holding parameters. - Patient's [id number] score would be 4 (Female, age > 74, HTN) - Continue Apixaban 5mg BID. - Hypertension - Currently normotensive. Full code. Apixaban. Advised patient to follow up with cardiology and PCP within two weeks. Pt Condition on Discharge: Good Discharge Disposition: Discharge Home Discharge Time: <= 30 minutes Discharge Instructions DIET: Follow Instructions for: Heart Healthy Diet Activities you can perform: Regular-No Restrictions Follow up Referrals: Cardiology - 2 Weeks PCP Follow-up - 2 Weeks New Medications: Diltiazem CD 24 HR (Diltiazem CD 24 HR) 240 Mg Caper 240 MG PO DAILY for Heart, #30 CAP 3 Refills Hold if heart rate < 65 or Blood pressure < 100 Metoprolol Tartrate (Metoprolol Tartrate) 25 Mg Tab 25 MG PO BID for Heart, #60 TAB 3 Refills Hold if Blood pressure < 100 or Heart rate < 65 Oseltamivir (Tamiflu) 75 Mg Cap 75 MG PO DAILY for Infection, #3 CAP Continued Medications: Apixaban (Eliquis) 5 Mg Tab 5 MG PO BID for Blood Clot Prevention, #60 TAB 0 Refills Lorazepam (Ativan) 0.5 Mg Tab 0.5 MG PO Q6H PRN for ANXIETY AND/OR AGITATION, TAB 0 Refills Omeprazole Magnesium (Prilosec) 20 Mg Tab Trazodone (Trazodone) 50 Mg Tab 50 MG PO HS for Control Depression, #30 TAB 0 Refills Discontinued Medications: Diltiazem ER 24 HR (Cartia Xt) 120 Mg Caper 120 MG PO DAILY, #30 CAP 0 Refills Hydrochlorothiazide (Hydrochlorothiazide) 25 Mg Tab 25 MG PO DAILY, #30 TAB 0 Refills Metoprolol Succinate ER 24 HR (Metoprolol Succinate ER 24 HR) 50 Mg Tab 50 MG PO BID, #30 TAB 0 Refills Candy Dobbins DO Feb 10, 2017 11:27 am
== END 2017-02-10 12:59 | disposition home or self-care (01) | DRG 195 ==
LOC: PHED 21:32 → PHEDA 23:45 → PHICU 02-09 00:25 → PH3B 02-10 08:09
PROVIDERS: ADMIT Hospitalist; ATTEND Hospitalist
DX: J10.1 Influenza due to other identified influenza virus with other respiratory manifestations (principal); I48.91 Unspecified atrial fibrillation; I10 Essential (primary) hypertension; K44.9 Diaphragmatic hernia without obstruction or gangrene; K21.9 Gastro-esophageal reflux disease without esophagitis
CPT/HCPCS: 71010; 80053; 82550; 82552; 83690; 84484; 85007; 85025; 85027; 87081; 87493; 87804; 87880; 93005; 96361; 96374; 96375; G8987-GP; G8988-GP; J2060; J2405; J7030; J7040

== ENCOUNTER → 2017-04-09 | Outpatient (CLI) | payer MEDICARE ==
[~2017-04-09] MED LIST changes: -AUGM875T3 PO; +DILT240C44 PO; +LORA-392 PO; +METO25TA3 PO; +OSEL75 PO; +TRAZ50TA12 PO
[2017-04-09 09:29] LABS: HEMATOCRIT 39.5 % (35.0-46.0); HEMOGLOBIN 13.5 GM/DL (11.6-15.3); MEAN CELL VOLUME 88.5 FL (80.0-100.0); MEAN CORPUSCULAR HEMOGLOBIN 30.1 PG (27.0-34.0); MEAN CORPUSCULAR HGB CONC 34.1 % (32.0-36.0); MEAN PLATELET VOLUME 9.3 FL (7.0-11.0); PLATELET COUNT 177 TH/MM3 (150-450); RED BLOOD COUNT 4.46 MIL/MM3 (4.00-5.30); RED CELL DISTRIBUTION WIDTH 13.6 % (11.6-17.2); WHITE BLOOD COUNT 5.9 TH/MM3 (4.0-11.0)
[2017-04-09 09:53] LABS: ALBUMIN 4.1 GM/DL (3.4-5.0); AST (GOT) 34 U/L (15-37); BICARBONATE 26.5 MEQ/L (21.0-32.0); BLOOD UREA NITROGEN 15 MG/DL (7-18); CALCIUM 9.2 MG/DL (8.5-10.1); CHLORIDE 105 MEQ/L (98-107); CHOLESTEROL 145 MG/DL (120-200); CREATININE 0.95 MG/DL (0.50-1.00); GLOMERULAR FILTRATION RATE 57 ML/MIN (>89); GLUCOSE,FASTING 99 MG/DL (74-99); SODIUM (NA) 140 MEQ/L (136-145); TRIGLYCERIDES 120 MG/DL (42-150)
[2017-04-09 09:57] LABS: ALKALINE PHOSPHATASE 111 U/L (45-117); ALT (GPT) 26 U/L (10-53); HDL CHOLESTEROL 42.6 MG/DL (40.0-60.0); LDL CHOLESTEROL 78 MG/DL (0-99); TOTAL BILIRUBIN ADULT 0.5 MG/DL (0.2-1.0); TOTAL PROTEIN 7.7 GM/DL (6.4-8.2)
== END ==
LOC: PLAB 06:43
PROVIDERS: ATTEND Internal Medicine Interventional Cardiology
DX: R06.02 Shortness of breath (principal); E78.2 Mixed hyperlipidemia; R00.2 Palpitations; I48.2 Chronic atrial fibrillation; R00.0 Tachycardia, unspecified; E66.09 Other obesity due to excess calories
CPT/HCPCS: 36415; 80053; 80061; 85027